=== PATIENT | female | born 1985 | race Asian ===

== ENCOUNTER → 2017-08-05 16:47 | Outpatient (CLI) | payer SELFPAY | PROVIDERS: Visit Provider Obstetrics & Gynecology | DX: Z34.90 Encounter for supervision of normal pregnancy, unspecified, unspecified trimester (principal) | CPT/HCPCS: 87086; 87088 ==

== ENCOUNTER → 2017-08-21 17:11 | Outpatient (CLI) | payer SELFPAY | PROVIDERS: Visit Provider Obstetrics & Gynecology | DX: O99.89 Other specified diseases and conditions complicating pregnancy, childbirth and the puerperium (principal); R82.71 Bacteriuria; Z3A.00 Weeks of gestation of pregnancy not specified | CPT/HCPCS: 87086 ==

== ENCOUNTER → 2017-08-26 12:28 | Outpatient (CLI) | payer SELFPAY ==
--- NOTE | 2017-08-26 12:45 | US_ITS ---
STUDY: SECOND AND THIRD TRIMESTER OBSTETRICAL ULTRASOUND - LIMITED REASON FOR EXAM: Female, 31 years old. As per patient, history of nuchal cord on ultrasound done at outside facility LMP: 12/17/2016 PRIOR ULTRASOUND: None. TECHNIQUE: Transabdominal ultrasound evaluation was performed. FINDINGS: There is a single intrauterine fetus. The fetus is in a cephalic presentation. There is demonstrated cardiac activity with a heart rate of 142 bpm. There is a normal amniotic fluid volume. The largest amniotic fluid pocket measures 5.1 cm. The amniotic fluid index (RAMÍREZ) is 15.8 cm. The placenta is anterior in location and is not low lying. There are Grade 1 placental changes. The cervix measures 3.3 cm in length. Umbilical cord is seen in the vicinity of the neck suggesting nuchal cord. BIOMETRY: BPD: 8.8 cm: 35 weeks, 5 days HC: 32.0 cm: 36 weeks, 1 days AC: 32.5 cm: 36 weeks, 3 days FL: 7.1 cm: 36 weeks, 3 days Age by LMP: 36 weeks, 0 days. LAN by LMP: 09/23/2017. age by current US: 36 weeks, 2 days. LAN by current US: 09/21/2017. Estimated weight: 2886 grams, +/- 421 grams, 58 percentile. US/OB Limited With Biometrics IMPRESSION: Single live intrauterine at current gestational age of 36 weeks 2 days. Findings as above are suggestive of nuchal cord. Electronically Signed: Jr Harris DO at 8:02 EDT Tel , Service support ,
== END ==
PROVIDERS: Visit Provider Obstetrics & Gynecology
DX: Z34.93 Encounter for supervision of normal pregnancy, unspecified, third trimester (principal)
CPT/HCPCS: 76816

== ENCOUNTER → 2017-09-02 15:20 | Outpatient (CLI) | payer SELFPAY ==
[2017-09-02 18:32] LABS: Group B Strep DNA By PCR Negative (Negative); Internal Control PASS; Probe Check PASS; Specimen Processing Control PASS
== END ==
PROVIDERS: Visit Provider Obstetrics & Gynecology
DX: Z34.03 Encounter for supervision of normal first pregnancy, third trimester (principal)
CPT/HCPCS: 87081; 87653

== ENCOUNTER 2017-09-23 14:00 | Outpatient (CLI) | payer SELFPAY ==
[2017-09-23 14:27] VITALS: BMI 63.9
--- NOTE | 2017-09-24 14:55 | OB.TRI.NOTE ---
- Problem List (1) False labor Status: Acute History of Present Illness Date of Service: 09/23/17 Reason For Visit: R/O LABOR Final LAN: 09/23/17 Gestational age: 40 Weeks and 1 Days History of Present Illness: 31 yo false labor Allergies No Known Allergies Allergy (Verified 09/24/17 01:48) NST - FHR Rate Baby A Baseline: 150 Variability:: Moderate Accelerations:: 15 x 15 Decelerations:: None NST Reactive:: Yes FHR Category:: Category I Uterine Activity:: irregular Impression/Plan false labor no cervical change reactive cat I tracing. dc home
== END 2017-09-23 16:45 | disposition home or self-care (01) ==
LOC: WPOUT 14:20 → WP 14:21
PROVIDERS: Visit Provider Obstetrics & Gynecology
DX: O47.03 False labor before 37 completed weeks of gestation, third trimester (principal); Z3A.31 31 weeks gestation of pregnancy
CPT/HCPCS: 59025; 59050; 99218; G0378

== ENCOUNTER 2017-09-24 01:00 | Inpatient (IN) | payer SELFPAY ==
[2017-09-24 01:49] VITALS: BMI 29.0
[2017-09-24] MEDS: Lactated Ringers 1,000 ML 50 ML IV ×4 (01:55→11:07)
[2017-09-24 02:18] LABS: Hematocrit 35.9 % (37-47); Hemoglobin 12.2 g/dl (12.0-15.0); Mean Corpuscular Hgb 32.2 pg (27.0-32.0); Mean Corpuscular Volume 94.7 fL (81-99); Mean Platelet Vol. 8.7 fl (6.2-12.0); Platelet Count 241 K/mm3 (150-450); RBC Distribution Width SD 48.3 fl (35.1-43.9); Red Blood Count 3.79 M/mm3 (4.2-5.4); White Blood Count 10.6 K/mm3 (4.4-11.0)
[2017-09-24 02:19] LABS: Scan Indicated on CBC? Y/N NO
[2017-09-24] MEDS: fentaNYL-bupivacaine (epidural) 100 ML BAG EPIDURAL (04:50)
[2017-09-24 05:55] LABS: Chlamydia Trachomatis by PCR Negative (Negative); Neisserai gonorrhoeae by PCR Negative (Negative); Probe Check PASS; Sample Adequacy Control PASS; Specimen Processing Control PASS
--- NOTE | 2017-09-24 06:26 | PCM.HP.OB ---
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 [employer] (3) Supervision of normal in third trimester Status: Acute Qualifiers: Comment: PRR LAN 09/23/17 boy Babatunde Joe History Date of Admission: 09/24/17 Final LAN: 09/23/17 Gestational age: 40 Weeks and 1 Days History of this : 31 yo @ 40w1d presents IAL Pertinent Past Medical History: negative Mom's Labs & Results 09/24/17 09/24/17 09/24/17 01:55 01:55 03:15 WBC 10.6 RBC 3.79 L Hgb 12.2 Hct 35.9 L MCV 94.7 MCH 32.2 H MCHC 34.0 RDW 14.0 RDW Differential 48.3 H Plt Count 241 MPV 8.7 Chlam trachomat DNA PCR Negative N.gonorrhoeae DNA (PCR) Negative Blood Type A POSITIVE Antibody Screen NEGATIVE Course Did the patient receive Yes care? Labs Blood Type: A RH: POSITIVE RPR/VDRL/Syphilis Nonreactive Rubella status Immune HbSAg Negative Date Done: 03/12/17 Chlamydia Not Done Gonorrhea Not Done HIV/AIDS Non-Reactive Group B Strep: Negative Current Obstetrical History Gestational Diabetes No Incompetent Cervix No Infertility No IUGR No Macrosomia No Hypertension/Pre-eclampsia No Placenta Previa/Abruption No PTL/PROM No Uterine anomaly No Oligohydramnios No Polyhydramnios No Multiple gestation No Past Medical History Asthma No Diabetes No Hypertension No Heart disease No Mitral valve prolapse No Neurologic/Seizure disorder/ No Migraines Kidney disease No Liver disease No Varicosities No Clotting disorders/Hx of DVT No Thyroid Dysfunction No Other medical diseases No Psychiatric disorders No Major trauma No Abnormal PAP smear No Sleep apnea No Mammogram in the last 2 years No Social History Marital Status: Hx Smoking No Smoking Status Never smoker Allergies No Known Allergies Allergy (Verified 09/24/17 01:48) Current Medications Acetaminophen (Tylenol) 325 - 650 mg PO Q4H PRN PRN PRN Reason: PAIN OR FEVER >100.4F Al Hydroxide/Mg Hydroxide (Mylanta Ii) 15 - 30 ml PO Q4H PRN PRN PRN Reason: INDIGESTION Citric Acid/Sodium Citrate (Bicitra) 30 ml PO UD PRN Lactated Ringer's () 1,000 mls @ 50 mls/hr IV .Q20H [facility] Last Admin: 09/24/17 06:09 Dose: 50 mls/hr Naloxone HCl 4 mg/ Dextrose 504 mls @ 0 mls/hr IV PRN PRN; Protocol PRN Reason: TO MAINTAIN RR>10 Nalbuphine HCl (Nubain) 5 - 10 mg IV Q3H PRN PRN PRN Reason: PAIN (4-10/10) Nalbuphine HCl (Nubain) 5 mg IV Q3H PRN PRN Reason: ITCHING Stop: 09/25/17 05:11 Naloxone HCl (Narcan) 0.2 mg IV Q1M PRN PRN Reason: RR<10 AND PT UNRESPONSIVE Stop: 09/25/17 05:11 Ondansetron HCl (Zofran) 4 mg IV Q8H PRN PRN PRN Reason: NAUSEA Promethazine HCl (Phenergan) 6.25 - 12.5 mg IV Q4H PRN PRN; Protocol PRN Reason: IF NAUSEA PERSISTS Sodium Chloride () 5 - 15 ml IV UD [facility] Last Admin: 09/24/17 02:15 Dose: Not Given Smoking Status: Never smoker Alcohol: None Number of Fetus(es): 1 - FHT 150s moderate variability reactive no decels cat I Review of Systems Constitutional: Denies: Chills, Fever, Weight Change HEENT: Denies: Head Aches, Sinus Congestion, Sinus Drainage Cardiovascular: Denies: Chest Pain, Palpitations Respiratory: Denies: Cough, Shortness of breath at rest, Sputum production Gastrointestinal: Denies: Abdominal Pain, Nausea, Vomiting Genitourinary: Denies: Dysuria Musculoskeletal: Denies: Joint Pain, Joint Tenderness Skin: Denies: Rash, Wounds Neurological: Denies: Numbness, Tingling, Focal weakness Psychiatric: Denies: Anxiety, Depression, Homicidal Ideations, Suicidal Ideations Hematologic/ Lymphatic: Denies: Easy Bruising, Easy Bleeding Physical Exam General: Alert Cardiovascular: Regular rate Lungs: Normal air movement Abdomen: Soft, Non Tender, Gravid Extremities:: No edema Estimated gestational size: Appropriate for gestational size Presentation: Cephalic Cervix Dilation (cm): 6 Station: -1 Effacement (%): 80 Assessment/Plan 31 yo @ 40w1d presents IAL expectant management, arom clear fluid
--- NOTE | 2017-09-24 06:29 | HP.PCM_ITS ---
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[employer] (3) Supervision of normal in third trimester Status: Acute Qualifiers: Comment: PRR LAN 09/23/17 boy Babatunde Joe History Date of Admission: 09/24/17 Final LAN: 09/23/17 Gestational age: 40 Weeks and 1 Days History of this : 31 yo @ 40w1d presents IAL Pertinent Past Medical History: negative Mom's Labs & Results 09/24/17 09/24/17 09/24/17 01:55 01:55 03:15 WBC 10.6 RBC 3.79 L Hgb 12.2 Hct 35.9 L MCV 94.7 MCH 32.2 H MCHC 34.0 RDW 14.0 RDW Differential 48.3 H Plt Count 241 MPV 8.7 Chlam trachomat DNA PCR Negative N.gonorrhoeae DNA (PCR) Negative Blood Type A POSITIVE Antibody Screen NEGATIVE Course Did the patient receive Yes care? Labs Blood Type: A RH: POSITIVE RPR/VDRL/Syphilis Nonreactive Rubella status Immune HbSAg Negative Date Done: 03/12/17 Chlamydia Not Done Gonorrhea Not Done HIV/AIDS Non-Reactive Group B Strep: Negative Current Obstetrical History Gestational Diabetes No Incompetent Cervix No Infertility No IUGR No Macrosomia No Hypertension/Pre-eclampsia No Placenta Previa/Abruption No PTL/PROM No Uterine anomaly No Oligohydramnios No Polyhydramnios No Multiple gestation No Past Medical History Asthma No Diabetes No Hypertension No Heart disease No Mitral valve prolapse No Neurologic/Seizure disorder/ No Migraines Kidney disease No Liver disease No Varicosities No Clotting disorders/Hx of DVT No Thyroid Dysfunction No Other medical diseases No Psychiatric disorders No Major trauma No Abnormal PAP smear No Sleep apnea No Mammogram in the last 2 years No Social History Marital Status: Hx Smoking No Smoking Status Never smoker Allergies No Known Allergies Allergy (Verified 09/24/17 01:48) Current Medications Acetaminophen (Tylenol) 325 - 650 mg PO Q4H PRN PRN PRN Reason: PAIN OR FEVER >100.4F Al Hydroxide/Mg Hydroxide (Mylanta Ii) 15 - 30 ml PO Q4H PRN PRN PRN Reason: INDIGESTION Citric Acid/Sodium Citrate (Bicitra) 30 ml PO UD PRN Lactated Ringer's () 1,000 mls @ 50 mls/hr IV .Q20H [facility] Last Admin: 09/24/17 06:09 Dose: 50 mls/hr Naloxone HCl 4 mg/ Dextrose 504 mls @ 0 mls/hr IV PRN PRN; Protocol PRN Reason: TO MAINTAIN RR>10 Nalbuphine HCl (Nubain) 5 - 10 mg IV Q3H PRN PRN PRN Reason: PAIN (4-10/10) Nalbuphine HCl (Nubain) 5 mg IV Q3H PRN PRN Reason: ITCHING Stop: 09/25/17 05:11 Naloxone HCl (Narcan) 0.2 mg IV Q1M PRN PRN Reason: RR<10 AND PT UNRESPONSIVE Stop: 09/25/17 05:11 Ondansetron HCl (Zofran) 4 mg IV Q8H PRN PRN PRN Reason: NAUSEA Promethazine HCl (Phenergan) 6.25 - 12.5 mg IV Q4H PRN PRN; Protocol PRN Reason: IF NAUSEA PERSISTS Sodium Chloride () 5 - 15 ml IV UD [facility] Last Admin: 09/24/17 02:15 Dose: Not Given Smoking Status: Never smoker Alcohol: None Number of Fetus(es): 1 - FHT 150s moderate variability reactive no decels cat I Review of Systems Constitutional: Denies: Chills, Fever, Weight Change HEENT: Denies: Head Aches, Sinus Congestion, Sinus Drainage Cardiovascular: Denies: Chest Pain, Palpitations Respiratory: Denies: Cough, Shortness of breath at rest, Sputum production Gastrointestinal: Denies: Abdominal Pain, Nausea, Vomiting Genitourinary: Denies: Dysuria Musculoskeletal: Denies: Joint Pain, Joint Tenderness Skin: Denies: Rash, Wounds Neurological: Denies: Numbness, Tingling, Focal weakness Psychiatric: Denies: Anxiety, Depression, Homicidal Ideations, Suicidal Ideations Hematologic/ Lymphatic: Denies: Easy Bruising, Easy Bleeding Physical Exam General: Alert Cardiovascular: Regular rate Lungs: Normal air movement Abdomen: Soft, Non Tender, Gravid Extremities:: No edema Estimated gestational size: Appropriate for gestational size Presentation: Cephalic Cervix Dilation (cm): 6 Station: -1 Effacement (%): 80 Assessment/Plan 31 yo @ 40w1d presents IAL expectant management, arom clear fluid
[2017-09-24] MEDS: Oxytocin 30 units/NS 500 ml 30 UNITS/500 ML IV.SOLN IV (08:39)
[2017-09-24] MEDS: Oxytocin 30 units/NS 500 ml 30 UNITS/500 ML IV.SOLN 334 UNITS IV (14:23)
--- NOTE | 2017-09-24 14:39 | OP.PCM_ITS ---
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 Patient was 5 cm upon admission Amniotic Membrane Rupture Type: Artificial Amniotic Fluid Description: Clear Final LAN: 09/23/17 Gestational age: 40 Weeks and 1 Days Date of Procedure: 09/24/17 Pre-Operative Diagnosis: Active labor Post-Operative Diagnosis: Same Surgery/ Procedure Performed: Spontaneous Vaginal Delivery Type of Anesthesia: Epidural Description of Procedure: Patient began pushing and delivered the head in the ALLEN presentation. The head was delivered atraumatically . The anterior and posterior shoulders delivered without complication followed by the rest of the infant and the infant was placed on the maternal abdomen. Delayed cord clamping was employed for approximately 60 seconds. Cord was clamped and cut and gentle traction was applied to the cord and the placenta delivered spontaneously immediately following it was noted to be intact with three-vessel cord. The perineum and vagina were inspected and noted to have a second-degree perineal laceration that was repaired in the usual fashion with 3-0 Vicryl repeat. EBL was 400 cc. Patient and tolerated delivery well. Presentation: ALLEN Placental Delivery Description: Spontaneous Placenta Disposition: [facility] Cord Vessel Description: 3 Vessels Cord Entanglement: None Estimated Blood Loss: 400 A gender: Male Episiotomy Description: None Laceration: Perineal Extension/lac, 2nd degree Medications given after delivery: IV Pitocin Complications: None
[2017-09-24] MEDS: Oxytocin 30 units/NS 500 ml 30 UNITS/500 ML IV.SOLN 167 UNITS IV (14:53)
--- NOTE | 2017-09-24 19:31 | NURSING ---
Patient attempted to get up with assistance at 1700 and was too dizzy. Unable to void in bedpan. Straight cath performed. At 1900, fundus was displaced. Attempted to get patient up with assistance and patient was again too dizzy to walk. Unable to void on bedpan so straight cath was again performed. Fundus back at midline umbilicus after straight cath.
[2017-09-24 19:40] VITALS: BP 109/52; PULSE 126; RESP 16; TEMP 37
[2017-09-24] MEDS: Lactated Ringers 1,000 ML 999 ML IV (22:35)
[2017-09-24 23:40] VITALS: BP 102/59; PULSE 106; RESP 16; TEMP 36.6; O2SAT 98
[2017-09-24] MEDS: 0.9% Saline Lock 10 ML Syringe IV (23:40)
[2017-09-25 03:45] VITALS: BP 94/50; PULSE 106; RESP 16; TEMP 35.8
--- NOTE | 2017-09-25 04:16 | NURSING ---
@ 0345 fundus firm and deviated to the right at U. pt states voiding @ 0300 and filling hat in toilet and using neha bottle - pt emptied hat before RN could visualize. pt encouraged to try to void again - @ 0355 pt voided 500ml before using neha bottle - fundal checke U/U and midline
--- NOTE | 2017-09-25 07:44 | PCM.PN.OB ---
Subjective: Doing well. Ambulating, normal urination, moderate lochia. No discomfort, CP, SOB. - Physical Exam General: Alert, Oriented x3 Abdomen: Soft, Non Tender, - - FF below U Vital Signs Temp Pulse Resp BP Pulse Ox 96.4 F L 106 H 16 94/50 L 98 09/25/17 03:45 09/25/17 03:45 09/25/17 03:45 09/25/17 03:45 09/24/17 23:40 Oxygen Delivery Method Room Air Weight: 168 lb 4 oz Body Mass Index (BMI) 29.0 Intake and Output for Last 24 Hours 09/23/17 09/24/17 09/25/17 23:59 23:59 23:59 Intake Total 3864 / 3864 Output Total 2150 / 2150 500 / 500 Balance 1714 / 1714 -500 / -500 Medical Necessity - Tobacco Use Smoking Status: Never smoker Assessment/Plan All Active Problems (Last Reviewed 09/23/17 @ 13:59 by Yolanda Morales) False labor (Acute) Asymptomatic bacteriuria during in third trimester (Acute) with care elsewhere in third trimester (Acute) Supervision of normal in third trimester (Acute) PPD #1: Routine care. OTC pain reliever offered and declines. .
[2017-09-25 08:33] VITALS: BP 93/54; PULSE 97; RESP 16; TEMP 36.3; O2SAT 95
[2017-09-25 11:51] VITALS: BP 89/53; PULSE 100; RESP 16; TEMP 36.3; O2SAT 95
[2017-09-25 15:53] VITALS: BP 96/55; PULSE 93; RESP 16; TEMP 36.3; O2SAT 96
[2017-09-25 19:35] VITALS: BP 96/55; PULSE 98; RESP 16; TEMP 36.6
[2017-09-26 02:30] VITALS: BP 90/60; PULSE 98; RESP 16; TEMP 36.3
--- NOTE | 2017-09-26 07:12 | PCM.DCVAG ---
Discharge Diet: No Restrictions Discharge Activity: Return to Normal Activity, May not drive while taking narcotic pain medications., May Shower May resume sexual activity in: 4-6 weeks Call your doctor if your incision/area has: Continuous Slow Oozing, Sudden Increased Bleeding, Increased Pain/ Swelling, Increased Redness, Foul Smelling Discharge Additional Instructions: If you experience any of the following, contact your healthcare provider. Bleeding that soaks a pad every hour for 2 hours Fever 100.4 or higher Unrelieved incision or abdominal pain Swelling, redness, discharge or bleeding from your incision or episiotomy site Your incision begins to separate Problems urinating (including inability to urinate or burning while urinating). Visual changes Severe headache Flu-like symptoms Pain or redness in one of both of your breasts Pain, warmth, tenderness or swelling in your legs, especially the calf area Frequent nausea and vomiting Symptoms of depression or anxiety If you experience any of the following, call 911 or go to the nearest Emergency Room. Chest pain Problems breathing Seizure activity Partial or complete paralysis of a body part, slurred speech, weakness or drooping of the face, or a sudden inability to walk or hold your balance Allergies/Adverse Reactions: Allergies No Known Allergies Allergy (Verified 09/24/17 01:48) Medications to take at Discharge Naproxen [Naprosyn] 250 - 500 mg PO Q8H PRN PRN #30 tab 09/26/17 Please Follow Up With: Helen Najera MD - [phone] When: Call to make an appointment with your doctor in 6 weeks. If you had elevated Blood pressure or 4th degree laceration you will need to be seen in 2 weeks. Primary Care Physician: Care Physician,No Primary [Primary Care Provider] -
--- NOTE | 2017-09-26 07:13 | DCINST_ITS ---
Discharge Diet: No Restrictions Discharge Activity: Return to Normal Activity, May not drive while taking narcotic pain medications., May Shower May resume sexual activity in: 4-6 weeks Call your doctor if your incision/area has: Continuous Slow Oozing, Sudden Increased Bleeding, Increased Pain/ Swelling, Increased Redness, Foul Smelling Discharge Additional Instructions: If you experience any of the following, contact your healthcare provider. * Bleeding that soaks a pad every hour for 2 hours * Fever 100.4 or higher * Unrelieved incision or abdominal pain * Swelling, redness, discharge or bleeding from your incision or episiotomy site * Your incision begins to separate * Problems urinating (including inability to urinate or burning while urinating) . * Visual changes * Severe headache * Flu-like symptoms * Pain or redness in one of both of your breasts * Pain, warmth, tenderness or swelling in your legs, especially the calf area * Frequent nausea and vomiting * Symptoms of depression or anxiety If you experience any of the following, call 911 or go to the nearest Emergency Room. * Chest pain * Problems breathing * Seizure activity * Partial or complete paralysis of a body part, slurred speech, weakness or drooping of the face, or a sudden inability to walk or hold your balance Allergies/Adverse Reactions: Allergies No Known Allergies Allergy (Verified 09/24/17 01:48) Medications to take at Discharge Naproxen [Naprosyn] 250 - 500 mg PO Q8H PRN PRN #30 tab 09/26/17 Please Follow Up With: Helen Najera MD - [phone] When: Call to make an appointment with your doctor in 6 weeks. If you had elevated Blood pressure or 4th degree laceration you will need to be seen in 2 weeks. Primary Care Physician: Care Physician,No Primary [Primary Care Provider] -
[2017-09-26 08:05] VITALS: BP 100/56; PULSE 84; RESP 16; TEMP 36.1; O2SAT 94
[2017-09-26 13:35] VITALS: BP 97/60; PULSE 108; RESP 16; TEMP 36; O2SAT 94
[2017-09-26 14:00] VITALS: BP 97/60; PULSE 108; RESP 16; TEMP 36; O2SAT 94
--- NOTE | 2017-09-26 14:26 | PN.OBGYN_ITS ---
Subjective: doing well no complaints - Physical Exam General: Alert Vital Signs Temp Pulse Resp BP Pulse Ox 96.8 F L 108 H 16 97/60 94 09/26/17 14:00 09/26/17 14:00 09/26/17 14:00 09/26/17 14:00 09/26/17 14:00 Oxygen Delivery Method Room Air Weight: 168 lb 4 oz Body Mass Index (BMI) 29.0 Intake and Output for Last 24 Hours 09/24/17 09/25/17 09/26/17 23:59 23:59 23:59 Intake Total 3864 / 3864 Output Total 2150 / 2150 500 / 500 Balance 1714 / 1714 -500 / -500 Medical Necessity - Tobacco Use Smoking Status: Never smoker Assessment/Plan All Active Problems (Last Reviewed 09/23/17 @ 13:59 by Yolanda Morales) False labor (Acute) Asymptomatic bacteriuria during in third trimester (Acute) with care elsewhere in third trimester (Acute) Supervision of normal in third trimester (Acute) s/p routine care [facility]
== END 2017-09-26 16:45 | disposition home or self-care (01) | DRG 775 ==
PROVIDERS: Admitting Provider Obstetrics & Gynecology; Visit Provider Obstetrics & Gynecology
DX: O48.0 Post-term pregnancy (principal); Z3A.40 40 weeks gestation of pregnancy; O70.1 Second degree perineal laceration during delivery; Z37.0 Single live birth; O75.89 Other specified complications of labor and delivery; R82.71 Bacteriuria
CPT/HCPCS: 59025; 59050; 85027; 86850; 86900; 87491; 87591; 99218; J7120; A4216; G0378

== ENCOUNTER → 2017-09-30 15:20 | Outpatient (CLI) | payer SELFPAY ==
--- NOTE | 2017-09-30 15:20 | DT_ITS ---
This patient was seen during an EMR downtime September 29, 2017 - October 06, 2017. This patient may have a combination of paper and electronic documentation or all paper documentation. All documentation is viewable within the e-chart portion of [facility] for each patient visit.
== END ==
LOC: WPPAT 10-06 17:09 → WPOUT 10-06 17:49
PROVIDERS: Visit Provider Obstetrics & Gynecology
DX: Z39.1 Encounter for care and examination of lactating mother (principal)
CPT/HCPCS: 96152

== ENCOUNTER → 2018-06-01 13:25 | Outpatient (CLI) | payer OTHER, SELFPAY ==
[2018-06-01 14:36] LABS: T4 Free Direct 0.87 ng/dL (0.76-1.46)
== END ==
PROVIDERS: Referring Provider Obstetrics & Gynecology; Visit Provider Obstetrics & Gynecology
DX: E07.9 Disorder of thyroid, unspecified (principal)
CPT/HCPCS: 36415; 84439; 84443

== ENCOUNTER → 2018-06-17 13:43 | Outpatient (CLI) | payer OTHER, SELFPAY ==
[2017-11-05 09:03] VITALS: BMI 25.2
[2018-06-17 15:12] LABS: T4 Free Direct 0.87 ng/dL (0.76-1.46); Thyroid Stim Hormone (TSH) 6.28 uIU/mL (0.358-3.74)
== END ==
PROVIDERS: Referring Provider Obstetrics & Gynecology; Visit Provider Obstetrics & Gynecology
DX: E05.90 Thyrotoxicosis, unspecified without thyrotoxic crisis or storm (principal)
CPT/HCPCS: 36415; 84439; 84443